=== PATIENT | female | born 1980 | race Caucasian/White ===

== ENCOUNTER 2018-10-13 19:42 | Emergency (ER) | payer OTHER ==
[~2018-10-13] VITALS: Ht 165.1 cm; Wt 74.8 kg
[2018-10-13 19:45] VITALS: BP 131/86
[2018-10-13] MEDS ORDERED: BUTALB-APAP-CA1 EACH PO (20:23)
== END 2018-10-13 20:46 | disposition home or self-care (01) ==
LOC: ER 19:42
DX: S06.0X0A Concussion without loss of consciousness, initial encounter (principal); S00.83XA Contusion of other part of head, initial encounter; S00.511A Abrasion of lip, initial encounter; Z90.49 Acquired absence of other specified parts of digestive tract; W17.89XA Other fall from one level to another, initial encounter; Y93.31 Activity, mountain climbing, rock climbing and wall climbing; Y92.89 Other specified places as the place of occurrence of the external cause; Y99.8 Other external cause status

== ENCOUNTER 2019-01-01 10:40 | Emergency (ER) | payer OTHER ==
[~2019-01-01] VITALS: Ht 165.1 cm; Wt 74.8 kg
[~2019-01-01 10:40] MED LIST: BUTALB-APAP-CA1 EACH PO
[2019-01-01 10:59] LABS: URINE BILIRUBIN NEGATIVE (Negative); URINE BLOOD NEGATIVE (Negative); URINE CLARITY CLEAR; URINE COLOR YELLOW; URINE GLUCOSE-RANDOM* NEGATIVE (Negative); URINE KETONES NEGATIVE (Negative); URINE LEUKOCYTES-REFLEX NEGATIVE (Negative); URINE NITRITE-REFLEX NEGATIVE (Negative); URINE PROTEIN (DIPSTICK) NEGATIVE (Negative); URINE SPECIFIC GRAVITY 1.015 (1.005-1.035); URINE UROBILINOGEN 0.2 E.U./dl (0.2-1.0)
[2019-01-01 11:12] LABS: ABSOLUTE NEUTROPHILS 6.9 thou/uL (1.4-8.2); BASOPHILS 0.4 % (0.0-2.0); EOSINOPHILS 0.8 % (0.0-3.0); HEMATOCRIT 40.4 % (37.0-47.0); HEMOGLOBIN 13.6 gm/dL (12.0-15.0); LYMPHOCYTES 12.1 % (24.0-44.0); MCH 30.3 pg (26.0-34.0); MCHC 33.8 g/dL (28.0-37.0); MCV 89.8 fL (80.0-100.0); PLATELET COUNT 348 thou/uL (150-400); POLYS 80.7 % (36.0-66.0); RDW 12.8 % (10.5-14.5); WBC 8.5 thou/uL (4.0-11.0)
[2019-01-01 11:20] LABS: CALCIUM 9.6 mg/dL (8.5-10.1); CREATININE 0.8 mg/dL (0.6-1.0); POTASSIUM 3.6 mmol/L (3.5-5.1)
[2019-01-01 11:25] LABS: ALBUMIN 3.7 g/dL (3.4-5.0); TOTAL BILIRUBIN 0.7 mg/dL (<0.1-1.0); TOTAL PROTEIN 7.9 g/dL (6.4-8.2)
[2019-01-01] MEDS ORDERED: ZOFRAN 4 MG ORAL4 MG PO (13:26)
[2019-01-01] MEDS ORDERED: PROMS25 WY RECTAL (13:26)
[2019-01-01 13:45] VITALS: BP 115/70
== END 2019-01-01 13:45 | disposition home or self-care (01) ==
LOC: ER 10:40
PROVIDERS: Nurse Practitioner Family
DX: J18.9 Pneumonia, unspecified organism (principal); R11.2 Nausea with vomiting, unspecified; Z90.89 Acquired absence of other organs; Z90.49 Acquired absence of other specified parts of digestive tract

== ENCOUNTER 2019-01-02 14:51 | Inpatient (IN) | payer OTHER ==
[~2019-01-02] VITALS: Ht 165.1 cm; Wt 74.8 kg
[~2019-01-02 14:51] MED LIST changes: +PROMS25 WY RECTAL; +ZOFRAN 4 MG ORAL4 MG PO
[2019-01-02 14:56] VITALS: BP 128/84
[2019-01-02 15:24] LABS: HEMOGLOBIN 13.8 gm/dL (12.0-15.0); MCH 30.6 pg (26.0-34.0); MCHC 34.1 g/dL (28.0-37.0); MCV 89.9 fL (80.0-100.0)
[2019-01-02 15:26] LABS: ABSOLUTE NEUTROPHILS 10.8 thou/uL (1.4-8.2); BASOPHILS 0.8 % (0.0-2.0); EOSINOPHILS 0.8 % (0.0-3.0); HEMATOCRIT 40.5 % (37.0-47.0); LYMPHOCYTES 9.9 % (24.0-44.0); MONOCYTES 5.8 % (1.0-8.0); PLATELET COUNT 357 thou/uL (150-400); POLYS 82.7 % (36.0-66.0); RBC 4.51 mil/uL (4.20-5.00); RDW 12.6 % (10.5-14.5); WBC 13.1 thou/uL (4.0-11.0)
[2019-01-02 15:35] LABS: CALCIUM 8.8 mg/dL (8.5-10.1); CREATININE 0.9 mg/dL (0.6-1.0); POTASSIUM 3.3 mmol/L (3.5-5.1)
[2019-01-02 15:41] LABS: ALBUMIN 3.3 g/dL (3.4-5.0); TOTAL BILIRUBIN 0.5 mg/dL (<0.1-1.0)
[2019-01-02 16:58] VITALS: BP 124/81
[2019-01-02 17:29] LABS: URINE BILIRUBIN NEGATIVE (Negative); URINE BLOOD NEGATIVE (Negative); URINE CLARITY CLEAR; URINE COLOR YELLOW; URINE GLUCOSE-RANDOM* NEGATIVE (Negative); URINE KETONES NEGATIVE (Negative); URINE LEUKOCYTES-REFLEX NEGATIVE (Negative); URINE NITRITE-REFLEX NEGATIVE (Negative); URINE PROTEIN (DIPSTICK) NEGATIVE (Negative); URINE UROBILINOGEN 0.2 E.U./dl (0.2-1.0)
[2019-01-02 18:04] VITALS: BP 121/79
[2019-01-02 18:57] VITALS: BP 103/67
[2019-01-02 19:20] VITALS: BP 103/75
--- NOTE | 2019-01-02 19:45 | NUR ---
ARRIVED TO FLOOR VIA WC FROM ED AT 1815. ALERT AND ORIENTED X 4. ADMISSION HISTORY COMPLETED. IVF'S STARTED, AZITHROMYCIN STARTED. DENIED NAUSEA/PAIN. REPORT GIVEN TO MERI BARCLAY NURSE. UP AD PILI. PROVIDED CUPS FOR SPUTUM SAMPLE AND STOOL SAMPLE WITH INSTRUCTIONS TO CALL NURSE FOR COLLECTION. VERY PLEASANT AND COOPERATIVE.
[2019-01-03 03:15] VITALS: BP 100/53
--- NOTE | 2019-01-03 03:47 | NUR ---
ASSUMED CARE OF PT @1900 PT ASSESSED AT START OF SHIFT. ADMISSION ASSESSESMENT CHARTED. DENIES N/V. DIET ORDERS PLACED FOR CLEAR LIQUIDS. SPUTUM AND STOOL SAMPLE COLLECTED AND SENT TO LAB. LIQUID BROWN STOOL NOTED AND YELLOW SPUTUM COLLECTED. PT UP AD PILI TO THE BATHROOM. @BEDSIDE FOR THE NIGHT. CALL LIGHT WITHIN REACH WILL CONT WITH POC TILL EOS.
[2019-01-03 08:49] VITALS: BP 100/61
[2019-01-03 09:00] LABS: HEMATOCRIT 37.4 % (37.0-47.0); HEMOGLOBIN 12.6 gm/dL (12.0-15.0); MCH 30.6 pg (26.0-34.0); MCHC 33.7 g/dL (28.0-37.0); MCV 90.7 fL (80.0-100.0); RBC 4.13 mil/uL (4.20-5.00); RDW 12.8 % (10.5-14.5); WBC 9.9 thou/uL (4.0-11.0)
[2019-01-03 09:07] LABS: CALCIUM 7.7 mg/dL (8.5-10.1); CREATININE 0.7 mg/dL (0.6-1.0); MAGNESIUM 1.8 mg/dL (1.8-2.4); POTASSIUM 3.2 mmol/L (3.5-5.1)
[2019-01-03] MEDS ORDERED: CEFUROXIME500 MG PO (13:50)
[2019-01-03] MEDS ORDERED: DOXYCYCLINE 10100 M2 PO (13:51)
[2019-01-03] MEDS ORDERED: COMPAZINE5 M1 PO (13:51)
[2019-01-03 14:36] VITALS: BP 100/61
[2019-01-03 15:18] VITALS: BP 100/61
== END 2019-01-03 15:32 | disposition home or self-care (01) | DRG 391 ==
LOC: ER 14:51 → 4S 16:45 → EROBS 16:45 → 4S 18:06 → ENTRNSPT 01-03 14:47 → EDTRNSPTSTS 01-03 14:53 → 4S 01-03 15:32
PROVIDERS: Physician Assistant; ADMIT Internal Medicine
DX: K52.9 Noninfective gastroenteritis and colitis, unspecified (principal); J18.9 Pneumonia, unspecified organism; E87.6 Hypokalemia; A08.4 Viral intestinal infection, unspecified; Z23 Encounter for immunization; Z90.49 Acquired absence of other specified parts of digestive tract; Z79.899 Other long term (current) drug therapy
CPT/HCPCS: 10195